=== PATIENT | female | born 1955 | race Caucasian/White ===

== ENCOUNTER → 2021-01-25 | Outpatient (CLI) | payer MEDICARE, OTHER ==
[~2021-01-25] MED LIST: ASPIRIN 325MG325 MG PO; ASPIRIN EC325 MG PO; COZAAR 50MG TAB50 MG PO; FLUOXETINE HCL40 MG PO; FOLIC ACID 1 MG1 MG PO; GABAPENTIN400 MG PO; HYDROXYZINE HCL25 MG PO; IMDUR ER TAB 6060 MG PO; LOPRESSOR 25 MG25 MG PO; MELOXICAM7.5 MG PO; MIRTAZAPINE7.5 MG PO; NORCO 10-325 T1 EACH PO; NORCO 7.5-3251 EACH PO; SPIRIVA RESPIMAT4 GM INH; TEGRETOL XR100 MG PO; VOLTAREN100 GM TP; ZOCOR 40 MG TAB40 MG PO
== END ==
LOC: EMI 15:31
DX: I67.89 Other cerebrovascular disease (principal)
CPT/HCPCS: 70544

== ENCOUNTER → 2021-01-26 | Outpatient (CLI) | payer MEDICARE, OTHER | LOC: HEART 5 07:36 | DX: I25.10 Atherosclerotic heart disease of native coronary artery without angina pectoris (principal); R06.02 Shortness of breath; R55 Syncope and collapse; Z95.1 Presence of aortocoronary bypass graft; I65.23 Occlusion and stenosis of bilateral carotid arteries; I08.0 Rheumatic disorders of both mitral and aortic valves; R93.1 Abnormal findings on diagnostic imaging of heart and coronary circulation | CPT/HCPCS: 78452; 93306; 93880; A9502; J2785 ==

== ENCOUNTER → 2021-02-09 | Outpatient (CLI) | payer MEDICARE, OTHER | LOC: CT 11:10 | DX: I65.22 Occlusion and stenosis of left carotid artery (principal); I70.8 Atherosclerosis of other arteries; R94.39 Abnormal result of other cardiovascular function study; R55 Syncope and collapse; J92.9 Pleural plaque without asbestos | CPT/HCPCS: 36415; 70498; 82565; Q9967 ==

== ENCOUNTER → 2022-03-21 | Outpatient (CLI) | payer MEDICARE, OTHER | LOC: HEART 5 09:11 | DX: I08.3 Combined rheumatic disorders of mitral, aortic and tricuspid valves (principal) | CPT/HCPCS: 93306 ==

== ENCOUNTER → 2022-05-09 | Outpatient (CLI) | payer MEDICARE, OTHER | LOC: EXRD 11:10 | DX: R09.89 Other specified symptoms and signs involving the circulatory and respiratory systems (principal); I65.23 Occlusion and stenosis of bilateral carotid arteries | CPT/HCPCS: 93880 ==

== ENCOUNTER 2022-07-05 02:19 | Emergency (ER) | payer MEDICARE, OTHER ==
[2022-07-05 03:56] LABS: HEMOGLOBIN 13.3 gm/dl (12.3-15.3); RED BLOOD COUNT 3.25 M/UL (4.00-5.10); WHITE BLOOD COUNT 7.3 K/UL (4.5-11.0)
[2022-07-05 04:13] LABS: BUN/CREATININE RATIO 32 (0-10)
== END 2022-07-05 08:00 | disposition left against medical advice (07) ==
LOC: ER1 02:19 → CDU 06:01 → ER1 06:01 → CDU 08:00
PROVIDERS: Physician Assistant
DX: J96.01 Acute respiratory failure with hypoxia (principal); N17.9 Acute kidney failure, unspecified; E86.0 Dehydration; I11.9 Hypertensive heart disease without heart failure; I25.10 Atherosclerotic heart disease of native coronary artery without angina pectoris; I25.2 Old myocardial infarction; J44.9 Chronic obstructive pulmonary disease, unspecified; Z20.822 Contact with and (suspected) exposure to COVID-19; E78.5 Hyperlipidemia, unspecified; F17.210 Nicotine dependence, cigarettes, uncomplicated; K21.9 Gastro-esophageal reflux disease without esophagitis
CPT/HCPCS: 36600; 71045; 80053; 82550; 82553; 82803; 83880; 84484; 85025; 85379; 85610; 85730; 93005; 99285; G0378; Q9967; U0002